=== PATIENT | female | born 1985 ===

== ENCOUNTER 2019-03-12 10:48 | Observation (INO) | payer BC | END 2019-03-12 12:17 | disposition home or self-care (01) | LOC: MW.OB 10:48 | PROVIDERS: ADMIT Obstetrics & Gynecology; ATTEND Obstetrics & Gynecology | DX: O99.89 Other specified diseases and conditions complicating pregnancy, childbirth and the puerperium (principal); N89.8 Other specified noninflammatory disorders of vagina; O47.9 False labor, unspecified | CPT/HCPCS: 59025; 81003; 84112 ==

== ENCOUNTER 2019-03-13 15:29 | Inpatient (IN) | payer BC ==
[2019-03-13] MEDS ORDERED: Lidocaine 1% 50 ML MDV INJECT PRN (16:46)
[2019-03-13] MEDS ORDERED: Sodium Chloride 0.9% 10 ML SDV IV PRN (16:46)
[2019-03-13] MEDS ORDERED: Tranexamic Acid 1,000 MG in Sodium Chloride 0.9% 100 ML IV PRN (16:46)
[2019-03-13] MEDS ORDERED: Sodium Chloride 0.9% 10 ML Syringe FLUSH PRN (16:46)
[2019-03-13] MEDS ORDERED: Misoprostol 200 MCG Tab PO PRN (16:46)
[2019-03-13] MEDS ORDERED: Nalbuphine 10 MG/1 ML Vial IVPUSH PRN (16:46)
[2019-03-13] MEDS ORDERED: Methylergonovine 0.2 MG/1 ML Amp IM PRN (16:46)
[2019-03-13] MEDS ORDERED: Sodium Chloride 0.9% 2.5 ML Syringe FLUSH PRN (16:46)
[2019-03-13] MEDS ORDERED: Butorphanol 1 MG/ML SDV IVPUSH PRN (16:46)
[2019-03-13] MEDS ORDERED: Carboprost Tromethamine 250 MCG/1 ML Amp IM PRN (16:46)
[2019-03-13] MEDS ORDERED: Water For Irrigation,Sterile 1,000 ML Container IRR PRN (16:46)
[2019-03-13] MEDS ORDERED: Terbutaline 1 MG/ML SDV SUBCUT PRN (16:49)
[2019-03-13] MEDS ORDERED: Misoprostol 25 MCG (1/4 of 100 MCG) Tab VAG PRN ×3 (16:49→23:30)
[2019-03-13] MEDS ORDERED: Oxytocin/0.9 % Sodium Chloride 30 UNIT/500 ML BAG IV SCH ×2 (17:00)
[2019-03-13 18:36] LABS: CHLORIDE,CL 102 mmol/L (98-107); SODIUM,NA 134 mmol/L (136-145)
[2019-03-13] MEDS: Lactated Ringers 1,000 ML IV SCH ×3 (21:45→23:22)
[2019-03-13] MEDS ORDERED: fentaNYL 100 MCG/2 ML SDV ONE (22:31)
[2019-03-13] MEDS ORDERED: Ropivacaine HCl/PF 100 ML ONE (22:32)
[2019-03-13] MEDS ORDERED: Ropivacaine 0.2% 2 MG/ML 20 ML SDV ONE (22:32)
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
[2019-03-14] MEDS ORDERED: Acetaminophen 500 MG Tab PO ONE (03:17)
[2019-03-14] MEDS ORDERED: Ampicillin/Sulbactam Na 3 GM in Sodium Chloride 0.9% 100 ML IV ONE (03:17)
[2019-03-14] MEDS: Lactated Ringers 1,000 ML IV SCH (03:38)
[2019-03-14] MEDS ORDERED: Aluminum Hydroxide/Magnesium Hydroxide/Simethicone Susp 30 ML Cup PO PRN (07:00)
[2019-03-14] MEDS ORDERED: Lanolin 100% Cream 7 GM Tube TOP PRN (07:00)
[2019-03-14] MEDS ORDERED: Ibuprofen 400 MG Tab PO PRN (07:00)
[2019-03-14] MEDS ORDERED: oxyCODONE 5 MG Tab PO PRN (07:00)
[2019-03-14] MEDS ORDERED: Bisacodyl 10 MG Supp RECTAL PRN (07:00)
[2019-03-14] MEDS ORDERED: Benzocaine/Menthol 20%-0.5% Spray 78 GM Cannister TOP PRN (07:00)
[2019-03-14] MEDS ORDERED: Acetaminophen 500 MG Tab PO PRN ×2 (07:00)
[2019-03-14] MEDS ORDERED: Ondansetron 4 MG/2 ML SDV IVPUSH PRN (07:00)
[2019-03-14] MEDS ORDERED: Docusate Sodium 100 MG Cap PO PRN (07:00)
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
--- NOTE | 2019-03-14 07:21 | PCM48HPAN ---
Post Anesthesia Note - EVALUATION WITHIN 48HRS OF ANESTHETIC Vital Signs in Normal Range: Yes Patient Participated in Evaluation: Yes Respiratory Function Stable: Yes Airway Patent: Yes Cardiovascular Function Stable: Yes Hydration Status Stable: Yes Pain Control Satisfactory: Yes Nausea and Vomiting Control Satisfactory: Yes Mental Status Recovered: Yes Temperature: 37.8 C - COMMENTS/OBSERVATIONS Free Text/Narrative:: Denies any complaints
[2019-03-14] MEDS: Ibuprofen 800 MG Tab PO PRN ×2 (08:54→18:35)
[2019-03-14] MEDS: Witch Hazel Medicated Pads 40/Jar TOP PRN (08:58)
[2019-03-14] MEDS: Ampicillin/Sulbactam Na 1.5 GM in Sodium Chloride 0.9% 50 ML IV SCH ×3 (09:39→22:44)
--- NOTE | 2019-03-14 13:35 | OR ---
SURGEON: Aruna Moore M.D. DATE OF PROCEDURE: 03/14/2019 PREOPERATIVE DIAGNOSES: 1. 41 and 2 weeks' intrauterine . 2. Prolonged rupture of membranes. POSTOPERATIVE DIAGNOSES: 1. 41 and 2 weeks' intrauterine . 2. Prolonged rupture of membranes. PROCEDURE: Spontaneous vaginal delivery, first-degree midline laceration repaired. ANESTHESIA: Epidural. ESTIMATED BLOOD LOSS: 300 mL. COMPLICATIONS: None. FINDINGS: Viable male. scores of 7 at one minute, 9 at five minutes. Weight is pending. Spontaneous delivery, intact placenta, 3-vessel cord, suspected chorioamnionitis. DISPOSITION: The patient in LDRP, in nursery. PROCEDURE DETAILS: Yessi is a 33-year-old, G1, P0 at 41 and 3 weeks' gestational age who was admitted on the late afternoon of 03/13/2019 with spontaneously ruptured membranes, clear fluid. She believes she may have ruptured at approximately 2 a.m. She is group B beta strep negative. The patient was admitted, routine labs were drawn, and IV hydration was initiated. The patient was still found to be 1 cm to 2 cm, 60% effaced, and -3 station which was same as in clinic despite being ruptured since 2 a.m., therefore was initiated on Cytotec ripening. She responded nicely to this, became increasingly uncomfortable, and progressed to 3 cm, 80% effaced, and -1 station. Therefore, underwent regional anesthesia from epidural. At this time, heart tones were category 1. The patient became more comfortable and was initiated on Pitocin, and contractions began to space out. She responded nicely to Pitocin. She progressed to 5 cm and then 8 cm, shortly after 3 a.m. At that time, though she did have a low-grade temperature of approximately 100.9. Given the prolonged rupture, was initiated on Unasyn prophylactically and received 1 g of Tylenol. Over the next 2 hours, the patient progressed to complete and then with pushing efforts was able to progress to a +3 station. I was called for delivery. Upon my arrival, the heart tone baseline had shifted to the 160s with maternal fever. The patient was pushing effectively, though continued with pushing efforts, and was able to deliver infant's head atraumatically, spontaneously, followed by anterior shoulder, posterior shoulder, and remainder of body without difficulty. A loose nuchal cord x1 was reduced manually. The 's oropharynx and nares were bulb suctioned. The secretions were slightly thick; however, no meconium was noted. There is chorioamnionitis, malodorous fluid noted. The infant was handed off to his mother with attending nursing staff at her side. After delay, the cord was clamped x2 and cut. Cord arterial, cord venous, and cord blood sampling obtained. Light pressure was applied while the placenta was delivered spontaneously intact. This will be sent to Pathology for further analysis. Vigorous fundal uterine massage was applied while 30 units Pitocin delivered in 500 mL of IV fluid. Upon inspection of cervix, vaginal sidewalls, and perineum, there was found to be a first-degree midline laceration repaired. The uterus remained firm. Hemostasis remained evident. Sponge count, instrument and needle count correct. The patient remained in LDRP. We will continue prophylactic antibiotics in the form of Unasyn for the next 24 hours, and the nursery staff is aware of the maternal fever. JEAN HERNANDES /[id number]
[2019-03-15] MEDS: Ibuprofen 800 MG Tab PO PRN ×3 (02:45→18:39)
[2019-03-15] MEDS: Ampicillin/Sulbactam Na 1.5 GM in Sodium Chloride 0.9% 50 ML IV SCH (04:06)
--- NOTE | 2019-03-15 09:22 | PCM.PN ---
- General Info Date of Service: 03/15/19 (PPD#1 . Chorioamnionitis. Unasyn in labor, and for 24 hours after delivery. Afeb since 03/14/ at 0300.) Functional Status: Reports: Pain Controlled - Review of Systems General: Reports: No Symptoms Gastrointestinal: Reports: No Symptoms Genitourinary: Reports: No Symptoms - Patient Data Vitals - Most Recent: Last Vital Signs Temp 36.7 C 03/15/19 07:18 Pulse 80 03/15/19 07:18 Resp 16 03/15/19 07:18 BP 116/69 03/15/19 07:18 Pulse Ox 99 03/15/19 07:18 Weight - Most Recent: 69.853 kg I&O - Last 24 Hours: Intake & Output 03/14/19 03/15/19 03/15/19 22:59 06:59 14:59 Intake Total 50 Balance 50 Lab Results Last 24 Hours: Laboratory Results - last 24 hr 03/15/19 Range/Units 06:00 WBC 12.97 H (4.0-11.0) K/uL RBC 3.69 L (4.30-5.90) M/uL Hgb 11.5 L (12.0-16.0) g/dL Hct 34.6 L (36.0-46.0) % MCV 93.8 (80.0-98.0) fL MCH 31.2 (27.0-32.0) pg MCHC 33.2 (31.0-37.0) g/dL RDW Std Deviation 46.1 (28.0-62.0) fl RDW Coeff of Flaco 13 (11.0-15.0) % Plt Count 111 L (150-400) K/uL MPV 10.20 (7.40-12.00) fL Add Manual Diff YES Neutrophils % (Manual) 79 (48.0-80.0) % Band Neutrophils % 8 % Lymphocytes % (Manual) 10 L (16.0-40.0) % Monocytes % (Manual) 3 (0.0-15.0) % Nucleated RBC % 0.0 /100WBC Absolute Seg Neuts 10.2 H (1.4-5.7) Band Neutrophils # 1.0 Lymphocytes # (Manual) 1.3 (0.6-2.4) Monocytes # (Manual) 0.4 (0.0-0.8) Nucleated RBCs # 0 K/uL Med Orders - Current: Current Medications Acetaminophen (Tylenol Extra Strength) 500 mg PO Q4H PRN PRN Reason: Pain Acetaminophen (Tylenol Extra Strength) 1,000 mg PO Q4H PRN PRN Reason: Pain Last Admin: 03/14/19 23:35 Dose: 1,000 mg Al Hydroxide/Mg Hydroxide (Mag-Al Plus) 30 ml PO Q8H PRN PRN Reason: Heartburn Benzocaine/Menthol (Dermoplast Pain Relief 20%-0.5% [place]) 78 gm TOP ASDIRECTED PRN PRN Reason: Perineal Comfort Measure Last Admin: 03/14/19 08:57 Dose: 1 canister Bisacodyl (Dulcolax) 10 mg RECTAL ONETIME PRN PRN Reason: Constipation Carboprost Tromethamine (Hemabate Ds) 250 mcg IM ASDIRECTED PRN PRN Reason: Post Hemorrhage Docusate Sodium (Colace) 100 mg PO BID PRN PRN Reason: Constipation Emollient Ointment (Lansinoh Hpa) 0 gm TOP ASDIRECTED PRN PRN Reason: Sore Nipples Tranexamic Acid 1,000 mg/ (Sodium Chloride) 110 mls @ 660 mls/hr IV ONETIME PRN PRN Reason: Bleeding Lactated Ringer's (Ringers, Lactated) 1,000 mls @ 150 mls/hr IV ASDIRECTED NIGEL Last Admin: 03/14/19 03:38 Dose: 150 mls/hr Oxytocin/Sodium Chloride (Oxytocin 30 Unit/500 Ml-Ns) 30 unit in 500 mls @ 500 mls/hr IV TITRATE NIGEL Oxytocin/Sodium Chloride (Oxytocin 30 Unit/500 Ml-Ns) 30 unit in 500 mls @ 2 mls/hr IV TITRATE [facility]; Protocol Last Titration: 03/14/19 06:27 Dose: 999 munits/min, 999 mls/hr Ibuprofen (Motrin) 400 mg PO Q4H PRN PRN Reason: Pain Ibuprofen (Motrin) 800 mg PO Q6H PRN PRN Reason: Pain Last Admin: 03/15/19 02:45 Dose: 800 mg Methylergonovine Maleate (Methergine) 0.2 mg IM ASDIRECTED PRN PRN Reason: Post Hemorrhage Ondansetron HCl (Zofran) 4 mg IVPUSH Q6H PRN PRN Reason: Nausea/Vomiting Oxycodone HCl (Oxycodone) 5 mg PO Q2H PRN PRN Reason: Pain Sodium Chloride (Saline Flush) 10 ml FLUSH ASDIRECTED PRN PRN Reason: Keep Vein Open Sodium Chloride (Saline Flush) 2.5 ml FLUSH ASDIRECTED PRN PRN Reason: Keep Vein Open Sodium Chloride (Normal Saline) 10 ml IV ASDIRECTED PRN PRN Reason: IV Use Terbutaline Sulfate (Brethine) 0.25 mg SUBCUT ASDIRECTED PRN PRN Reason: Tacysystole Witch Nika (Tucks) 1 pad TOP ASDIRECTED PRN PRN Reason: comfort care Last Admin: 03/14/19 08:58 Dose: 1 container Discontinued Medications Acetaminophen (Tylenol Extra Strength) 1,000 mg PO ONETIME ONE Stop: 03/14/19 03:18 Last Admin: 03/14/19 03:37 Dose: 1,000 mg Butorphanol Tartrate (Stadol) 1 mg IVPUSH Q1H PRN PRN Reason: Pain Fentanyl (Sublimaze) Confirm Administered Dose 300 mcg .ROUTE .STK-MED ONE Stop: 03/13/19 22:32 Ropivacaine (Naropin 0.2%) Confirm Administered Dose 100 mls @ as directed .ROUTE .STK-MED ONE Stop: 03/13/19 22:33 Ampicillin Sodium/Sulbactam (Sodium 3 gm/ Sodium Chloride) 100 mls @ 200 mls/ hr IV ONETIME ONE Stop: 03/14/19 03:46 Last Admin: 03/14/19 03:48 Dose: 200 mls/hr Ampicillin Sodium/Sulbactam (Sodium 1.5 gm/ Sodium Chloride) 50 mls @ 100 mls/ hr IV Q6H NIGEL Stop: 03/15/19 03:59 Last Admin: 03/15/19 04:06 Dose: 100 mls/hr Lidocaine HCl (Xylocaine 1%) 50 ml INJECT ONETIME PRN PRN Reason: Laceration repair Misoprostol (Cytotec) 200 mcg PO ONETIME PRN PRN Reason: Post Hemorrhage Misoprostol (Cytotec) 25 mcg VAG ONETIME PRN PRN Reason: Cervical Ripening Last Admin: 03/13/19 17:33 Dose: 25 mcg Misoprostol (Cytotec) 25 mcg VAG Q6H PRN PRN Reason: Other Nalbuphine HCl (Nubain) 10 mg IVPUSH Q1H PRN PRN Reason: Pain (severe 7-10) Ropivacaine (Naropin 0.2%) Confirm Administered Dose 20 ml .ROUTE .STK-MED ONE Stop: 03/13/19 22:33 Sterile Water (Sterile Water For Irrigation) 1,000 ml IRR ASDIRECTED PRN PRN Reason: delivery Last Admin: 03/14/19 06:05 Dose: 1,000 ml - Exam General: Alert, Oriented, Cooperative, No Acute Distress Neck: Supple Lungs: Normal Respiratory Effort GI/Abdominal Exam: Other (Soft. Non-tender. Uterus firm, below umbilicus. Mild soreness with palpation.) - Problem List & Annotations (1) Vaginal delivery SNOMED Code(s): 039487490 Code(s): O80 - ENCOUNTER FOR FULL-TERM UNCOMPLICATED DELIVERY Status: Acute Current Visit: Yes (2) Chorioamnionitis SNOMED Code(s): 09950796 Code(s): O41.1290 - CHORIOAMNIONITIS, UNSP TRIMESTER, NOT APPLICABLE OR UNSP Status: Acute Current Visit: Yes - Problem List Review Problem List Initiated/Reviewed/Updated: Yes - Assessment Assessment:: Pt is doing well. Continue PP cares. - Plan Plan:: Continue cares. Recheck CBC tomorrow.
[2019-03-15] MEDS: Witch Hazel Medicated Pads 40/Jar TOP PRN (16:59)
[2019-03-16] MEDS: Ibuprofen 800 MG Tab PO PRN (01:06)
== END 2019-03-16 02:07 | disposition home or self-care (01) | DRG 560 ==
LOC: MW.OBCHECK 15:29 → MW.OB 15:31 → MW.OBCHECK 03-14 06:00 → OBSVTOIN 03-14 06:26 → MW.OB 03-14 16:08
PROVIDERS: ADMIT Obstetrics & Gynecology; ATTEND Obstetrics & Gynecology
PROC: 10E0XZZ Delivery of Products of Conception, External Approach (ICD-10-PCS; principal; 2019-03-14)
PROC: 0HQ9XZZ Repair Perineum Skin, External Approach (ICD-10-PCS; 2019-03-14)
PROC: 3E0P7VZ Introduction of Hormone into Female Reproductive, Via Natural or Artificial Opening (ICD-10-PCS; 2019-03-14)
PROC: 3E033VJ Introduction of Other Hormone into Peripheral Vein, Percutaneous Approach (ICD-10-PCS; 2019-03-14)
DX: O48.0 Post-term pregnancy (principal); O41.1230 Chorioamnionitis, third trimester, not applicable or unspecified; O99.52 Diseases of the respiratory system complicating childbirth; J45.909 Unspecified asthma, uncomplicated; O70.0 First degree perineal laceration during delivery; O69.81X0 Labor and delivery complicated by cord around neck, without compression, not applicable or unspecified; Z3A.41 41 weeks gestation of pregnancy; Z37.0 Single live birth
CPT/HCPCS: 01967; 36415; 51702; 59025; 59409; 80053; 81001; 82803; 84112; 85025; 85027; 86850; 86900; 86901; 88307; A9270-GY; J0295; J2590; J2795; J3010; J7030; J7050; J7120